=== PATIENT | male | born 1995 | race Caucasian/White ===

== ENCOUNTER 2017-08-18 08:51 | Emergency (ER) | payer SELFPAY ==
[~2017-08-18] VITALS: Ht 172.7 cm; Wt 90.7 kg
[2017-08-18 08:51] VITALS: BP 122/57
[2017-08-18] MEDS ORDERED: KETOROLAC TROMETHAMINE INJ 30 MG/ML VIAL ONE (09:25)
[2017-08-18] MEDS ORDERED: PENICILLIN V POTASSIUM 500 MG TABLET PO ONE ×2 (09:25→09:30)
[2017-08-18] MEDS ORDERED: KETOROLAC TROMETHAMINE INJ 60 MG/2 ML VIAL IM ONE (09:30)
== END 2017-08-18 09:35 | disposition home or self-care (01) ==
LOC: ER 08:58
DX: K05.10 Chronic gingivitis, plaque induced (principal); K05.30 Chronic periodontitis, unspecified; F17.200 Nicotine dependence, unspecified, uncomplicated
CPT/HCPCS: 96372; 99283; A4606; J1885; Z7610